=== PATIENT | female | born 1940 | race Caucasian/White ===

== ENCOUNTER 2021-09-05 08:21 | Outpatient (CLI) | payer MEDICARE ==
--- NOTE | 2021-09-05 09:49 | DEXA Report ---
PROCEDURE: Dexa Spine and/or Hip INDICATIONS: POST MENOPAUSAL TECHNIQUE: Dual energy x-ray absorptiometry (DXA) was performed on a [employer]. Regions measur ed are the AP Spine, femoral neck, and if needed forearm. COMPARISON: None. FINDINGS: Lumbar Spine: Bone Mineral Density 0.985 g/cm/cm, T score -1.6, osteopenia. Left Hip: Bone Mineral Density 0.635 g/cm/cm, T score -3.0, osteoporosis. Left Femoral Neck: Bone Mineral Density 0.603 g/cm/cm, T score -3.1, osteoporosis. (T score greater or equal to -1.0: NORMAL) (T score from -1.1 to -2.4: OSTEOPENIA) (T score less than or equal to -2.5 to: OSTEOPOROSIS) Impression: 1. Lumbar spine osteopenia. 2. Left hip osteoporosis. Patients with diagnosis of osteoporosis or osteopenia should have regular bone mineral density assess ment. For those eligible for Medicare, routine testing is allowed once every 2 years. Testing frequ ency can be increased for patients who have rapidly progressing disease or for those who are receivin g medical therapy to restore bone mass. Reviewed by: Miguel Angel Anand MD on 09/05/2021 9:47 AM PST Approved by: Miguel Angel Anand MD on 09/05/2021 9:47 AM PST Station ID: [id number]
== END 2021-09-05 08:22 | disposition home or self-care (01) ==
LOC: DI 08:21
PROVIDERS: ATTEND Family Medicine
DX: M81.0 Age-related osteoporosis without current pathological fracture (principal); Z78.0 Asymptomatic menopausal state